=== PATIENT | female | born 2000 | race Caucasian/White ===

== ENCOUNTER 2019-02-08 11:27 | Day surgery (SDC) | payer BC ==
--- NOTE | 2019-02-01 09:54 | HP ---
Admitting History and Physical - Primary Care Physician PCP: Bk Bryan - Admission Chief Complaint: Right breast Phyllodes History of Present Illness: 18 year old premenapausal nulliparous female with right breast mass that has been increasing in size.This was first noted one year ago and had a work up which revealed right breast mass at 7:00 4 cm FN measuring 2.0 cm. 02/01/2018 Right breast US core bx revealed fibroadenoma with cellular stroma. Since then it has significantly increased in size and wishes for this to be excisied. History Source: Patient Limitations to Obtaining History: No Limitations - Smoking History Smoking history: Never smoked Have you smoked in the past 12 months: No - Alcohol/Substance Use Hx Alcohol Use: No Home Medications - Allergies Allergies/Adverse Reactions: Allergies Allergy/AdvReac Type Severity Reaction Status Date / Time No Known Allergies Allergy Verified 02/01/19 09:53 - Home Medications Home Medications (free text): none Family Disease History - Family Disease History Family History: Denies Physical Examination Constitutional: Yes: Well Nourished Breast(s): Yes: Other (diffusely nodular 4.0cm right breast mass at 7N4 and lobulated) Problem List - Problems (1) Benign phyllodes tumor of right breast Code(s): D24.1 - BENIGN NEOPLASM OF RIGHT BREAST Assessment/Plan Right breast wide excision
[2019-02-08] MEDS ORDERED: MIDAZOLAM HCL 2 MG/2 ML SINGLE DOSE VIAL ONE (12:40)
[2019-02-08] MEDS ORDERED: PROPOFOL 20 ML ONE ×2 (12:42→13:11)
[2019-02-08] MEDS ORDERED: LIDOCAINE HCL/PF 2% SDV 5ML VIAL ONE (12:43)
[2019-02-08] MEDS ORDERED: KETOROLAC TROMETHAMINE 30 MG/1 ML VIAL ONE (12:43)
[2019-02-08] MEDS ORDERED: ONDANSETRON 4 MG/2 ML VIAL ONE (12:43)
[2019-02-08] MEDS ORDERED: DEXAMETHASONE SOD PHOSPHATE 4 MG/1 ML VIAL ONE (12:43)
[2019-02-08] MEDS ORDERED: LIDOCAINE 1%/EPI 1:100000 (20 ML MULTI DOSE VIAL) ONE (12:44)
[2019-02-08] MEDS ORDERED: LIDOCAINE HCL 1% PRESERVATIVE FREE - 30ML VIAL ONE (12:44)
[2019-02-08] MEDS ORDERED: BUPIVACAINE HCL/PF 2.5 MG/ML - 30 ML VIAL IJ ONE (12:44)
[2019-02-08] MEDS ORDERED: LIDOCAINE HCL 1%, 10 MG/ML (50 mL VIAL) IJ ONE (13:07)
[2019-02-08] MEDS ORDERED: BUPIVACAINE HCL/PF 0.25% (2.5MG/ML) 10 ML VIAL IJ ONE (13:07)
[2019-02-08] MEDS ORDERED: GUM MASTIC/STORAX/MSAL/ALCOHOL 1 DRP DROPSBTL MC ONE (13:35)
[2019-02-08] MEDS ORDERED: KETOROLAC TROMETHAMINE 30 MG/1 ML VIAL IVPUSH PRN (14:04)
[2019-02-08] MEDS ORDERED: ONDANSETRON 4 MG/2 ML VIAL IVPUSH PRN ×2 (14:04→14:05)
[2019-02-08] MEDS ORDERED: oxyCODONE HCL 5 MG TABLET PO PRN (14:05)
[2019-02-08] MEDS ORDERED: LACTATED RINGERS SOLUTION 1,000 ML IV SCH (14:15)
[2019-02-08] MEDS ORDERED: DEXTROSE 5%-0.45% SALINE 1,000 ML IV SCH (14:15)
[2019-02-08 15:08] VITALS: TEMP 98.5
[2019-02-08 15:38] VITALS: BP 109/62; PULSE 70
--- NOTE | 2019-02-09 08:00 | OP ---
DATE OF OPERATION: 02/08/2019 PREOPERATIVE DIAGNOSIS: Right breast mass. POSTOPERATIVE DIAGNOSIS: Right breast mass. PROCEDURE: Right breast biopsy. ANESTHESIA: General intubated. SURGEON: Ulises Bryan MD [facility] ATTENDANT: GHADA Evans ESTIMATED BLOOD LOSS: Minimal. DESCRIPTION OF PROCEDURE: Patient was placed in a supine position on the operating room table, and after general anesthesia was induced, the patient was intubated. The operative site was prepped and draped in the usual sterile fashion. Lidocaine 1% mixed in a 1:1 ratio with 0.25% bupivacaine was used for local anesthesia. An inframammary incision was then made using electrocautery with tissues dissected down to the breast mass, which was bluntly and sharply dissected free and submitted as right breast mass. The wound was copiously irrigated with normal saline. Hemostasis maintained by electrocautery. The wound was then closed with deep 3-0 Vicryl followed by a running subcuticular 4-0 Monocryl. Steri-Strips and a sterile bandage were then applied, and the patient having tolerated procedure well, was transferred to the recovery room in excellent condition. ULISES BRYAN M.D. [id number]
--- NOTE | 2019-02-15 13:49 | PATH ---
Surgical Pathology Report Patient Name: RAMIN MCNEIL [facility]. Rec. #: [id number] /Age/Gender: 2000 (Age: 18) / F Account: [id number] Location: [facility] AM[facility] Taken: 02/08/2019 Received: 02/08/2019 Reported: 02/15/2019 Physicians: Bk Bryan M.D. Specimen(s) Received RIGHT BREAST MASS Clinical History Right breast mass Final Diagnosis Breast, right, mass, excision: benign phyllodes tumor. (See note). Note: This fibroepithelial lesion shows lobulated growth with pushing borders and areas of cleft-like glandular architecture. There is moderate increase in stromal cellularity with few zones of stromal expansion. There is mild stromal cell atypia with up to 2-3 mitoses in 10 high power mckenna. Based on these features, this fibroepithelial lesion is best classified as benign phyllodes tumor. Phyllodes tumor extends to undesignated inked margins. Case discussed with Dr. Bk Bryan on 02/15/19. Electronically Signed Keiko Barros M.D. Gross Description Received in formalin, labeled "right breast mass" is a 3.5 x 3 x 1.5 cm unoriented portion of sy nodular rubbery tissue. The specimen is inked black. Sectioning reveals a light sy, homogenous, fibrous appearing mass. No areas of hemorrhage or necrosis are identified. Entirely submitted in seven cassettes. AE/02/11/2019 ebram/02/11/2019
== END 2019-02-08 15:38 | disposition home or self-care (01) ==
LOC: FASU 11:27
PROVIDERS: ATTEND Surgery Surgical Oncology
PROC: 0HBT0ZX Excision of Right Breast, Open Approach, Diagnostic (ICD-10-PCS; principal; 2019-02-08 13:23)
DX: D24.1 Benign neoplasm of right breast (principal); N63.10 Unspecified lump in the right breast, unspecified quadrant
CPT/HCPCS: 84703; 88307-TC; 94760